=== PATIENT | male | born 1955 | race Caucasian/White ===

== ENCOUNTER 2019-07-17 19:20 | Emergency (ER) | payer BC ==
[2019-07-17 19:30] VITALS: BP 124/100; PULSE 81; TEMP 98; BMI 45.1
--- NOTE | 2019-07-17 20:26 | PDOC ---
History of Present Illness - General Chief Complaint: Pain, Acute Stated Complaint: FLANK PAIN Time Seen by Provider: 07/17/19 20:21 History Source: Patient - History of Present Illness Initial Comments: 07/17/19 64 year old male c/o Right flank pain for the last 3 to 4 days. Patient reports that he has been taking couple of dose of oxycodone and ibuprofen with no pain relief. Patient reports that one week ago patient had spinal nerve pain procedure done by pain management. Patient denies any fever/chills. Patient was seen at urgent care labs ultrasound and urine was negative. Patient was seen by PCP who sent patient in for evaluation for rule out acute abdomen. Patient denies any abdominal pain. Patient does have slight nausea right flank pain. Denies urinary symptoms. T-max of 99 at home yesterday 07/17/19 23:37 Past History - Past Medical History Allergies/Adverse Reactions: Allergies Allergy/AdvReac Type Severity Reaction Status Date / Time acetaminophen [From Vicodin] Allergy Mild "sick as a Verified 03/31/14 15:42 dog"..."like severely intoxicated" hydrocodone bitartrate Allergy Mild "sick as a Verified 03/31/14 15:42 [From Vicodin] dog"..."like severely intoxicated" Sulfa (Sulfonamide Allergy Vomiting Verified 03/31/14 15:42 Antibiotics) Home Medications: Ambulatory Orders Cyclobenzaprine HCl [Flexeril -] 10 mg PO TID #10 tablet 03/31/14 Liothyronine Sodium [Cytomel] 25 mcg PO DAILY 03/31/14 Nebivolol HCl [Bystolic] 5 mg PO DAILY 03/31/14 Lidocaine 5% Patch [Lidoderm -] 1 patch TP DAILY #7 patch 07/17/19 Naproxen 500 mg PO BID PRN #20 tablet 07/17/19 Cyclobenzaprine HCl [Flexeril 10 mg] 10 mg PO BID PRN #10 tablet 07/18/19 Cancer: Yes (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) COPD: No HTN: Yes - Surgical History Abdominal Surgery: Yes Cholecystectomy: Yes - Psycho Social/Smoking Cessation Hx Smoking Status: Yes Smoking History: Never smoked Have you smoked in the past 12 months: No Number of Cigarettes Smoked Daily: 0 Information on smoking cessation initiated: No Hx Alcohol Use: No Drug/Substance Use Hx: No Substance Use Type: None Review of Systems - Review of Systems Able to Perform ROS?: Yes Is the patient limited Syriac proficient: No Constitutional: No: Symptoms Reported, See HPI, Chills, Diaphoresis, Fever, Loss of Appetite, Malaise, Night Sweats, Weakness, Weight Stable, Unintentional Wgt. Loss, Unexplained wgt Loss, Other ABD/GI: Yes: Nausea. No: Symptoms Reported, See HPI, Abdominal Distended, Abd. Pain w/ defecation, Blood Streaked Bowels, Constipated, Diarrhea, Difficulty Swallowing, Poor Appetite, Poor Fluid Intake, Rectal Bleeding, Vomiting, Indigestion, Abdominal cramping, Tarry Stools, Other : Yes: Flank Pain. No: Symptoms Reported, See HPI, Burning, Dysuria, Discharge, Frequency, Hematuria, Incontinence, Pain, Urgency, Testicular Mass, Testicular Swelling, Lesions, Testicular Pain, Other *Physical Exam - Vital Signs Last Vital Signs Temp Pulse Resp BP Pulse Ox 98.0 F 81 19 124/100 97 07/17/19 19:26 07/17/19 19:26 07/17/19 19:26 07/17/19 19:26 07/17/19 19:26 - Physical Exam General Appearance: Yes: Mild Distress Respiratory/Chest: positive: Lungs Clear, Normal Breath Sounds Gastrointestinal/Abdominal: positive: Normal Bowel Sounds, Soft, Other (No right lower quadrant tenderness.). negative: Tender Extremity: positive: Normal Capillary Refill, Normal Inspection, Normal Range of Motion Integumentary: positive: Normal Color, Dry, Warm Neurologic: positive: Fully Oriented, Alert, Normal Mood/Affect ED Treatment Course - LABORATORY CBC & Chemistry Diagram: 07/17/19 20:44 07/17/19 20:44 ED Progress Note - Progress Note Progress Note: 07/17/19 23:42 A: right flank pain P: cbc cmp UA CTAP pain control Medical Decision Making - Medical Decision Making 07/17/19 23:41 CTAP: No evidence of urolithiasis or hydronephrosis. Increased size of very large umbilical hernia. Diffuse hepatic steatosis. Multilevel thoracolumbar degenerative disc and facet joint changes. Appendix appears unremarkable. Sigmoid diverticulosis. 07/18/19 06:36 Patient is pain free after toradol IM. 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 Discharge - Discharge Information Problems reviewed: Yes Clinical Impression/Diagnosis: Flank pain, acute Condition: Stable Disposition: HOME - Additional Discharge Information Prescriptions: Cyclobenzaprine HCl [Flexeril 10 mg] 10 mg PO BID PRN #10 tablet PRN Reason: Muscle Spasms Lidocaine 5% Patch [Lidoderm -] 1 patch TP DAILY #7 patch Naproxen 500 mg PO BID PRN #20 tablet PRN Reason: Back Pain - Follow up/Referral Referrals: Wendi Stephenson MD [Primary Care Provider] - Call tomorrow - Patient Discharge Instructions Patient Printed Discharge Instructions: DI for Flank Pain Additional Instructions: 1. Please return to the emergency department with any numbness, tingling, weakness, numbness or tingling to groin or legs, or loss of bowel or bladder function. 2. Use pain medication as ordered. 3. Please is to followup orthopedic for evaluation within a week if no improvement. 4. Ice or heat 5. Refrain from lifting anything above 10 pounds, until pain resolved. Take Naprosyn twice a day as prescribed. Use lidocaine patch as prescribed. - Post Discharge Activity
[2019-07-17] MEDS ORDERED: ONDANSETRON 4 MG/2 ML VIAL IVPB ONE (20:28)
[2019-07-17] MEDS ORDERED: SODIUM CHLORIDE 1,000 ML IV STA (20:28)
[2019-07-17] MEDS ORDERED: morphine CARPU-JECT 4 MG/1 ML DISP.SYRIN IVPUSH ONE ×2 (20:29→22:06)
[2019-07-17] MEDS ORDERED: ONDANSETRON 4 MG/2 ML VIAL ONE (20:50)
[2019-07-17] MEDS ORDERED: morphine SULFATE 4 MG/ML VIAL ONE ×2 (20:50→22:41)
[2019-07-17 20:53] LABS: BASO % 0.8 % (0-2.0); EOS % 2.1 % (0-4.5); HEMATOCRIT 43.6 % (35.4-49); HEMOGLOBIN 14.5 GM/dL (11.7-16.9); LYMPH % 19.5 % (8-40); MCHC 33.2 g/dl (32.0-35.9); MEAN CELL VOLUME 90.4 fl (80-96); MONO % 8.2 % (3.8-10.2); NEUT % 69.4 % (42.8-82.8); PLATELET COUNT 225 K/MM3 (134-434); RBC 4.83 M/mm3 (4.00-5.60); RDW 13.3 % (11.9-15.9); WHITE BLOOD COUNT 11.5 K/mm3 (4.0-10.0)
[2019-07-17] MEDS ORDERED: morphine CARPU-JECT 2 MG/1 ML DISP.SYRIN IVPUSH ONE (21:04)
[2019-07-17 21:19] LABS: ALBUMIN 3.6 g/dl (3.4-5.0); BILIRUBIN,TOTAL 0.3 mg/dL (0.2-1); BLOOD UREA NITROGEN 18.4 mg/dL (7-18); CALCIUM 9.1 mg/dL (8.5-10.1); CREATININE 0.9 mg/dL (0.55-1.3); POTASSIUM 4.2 mmol/L (3.5-5.1); TOT PROT 7.1 g/dl (6.4-8.2)
[2019-07-17] MEDS ORDERED: LIDOCAINE PATCH REMOVAL MC SCH (22:00)
[2019-07-17 22:24] LABS: PH,URINE 6.5 (5.0-8.0); URINE APPEARANCE CLEAR; URINE BILIRUBIN NEGATIVE (NEGATIVE); URINE COLOR YELLOW; URINE GLUCOSE (UA) NEGATIVE (NEGATIVE); URINE KETONE NEGATIVE (NEGATIVE); URINE LEUK ESTERASE NEGATIVE (NEGATIVE); URINE NITRITE NEGATIVE (NEGATIVE); URINE PROTEIN NEGATIVE (NEGATIVE); URINE UROBILINOGEN 0.2 mg/dL (0.2-1.0)
[2019-07-17] MEDS ORDERED: KETOROLAC TROMETHAMINE 30 MG/1 ML VIAL IVPUSH ONE (23:10)
[2019-07-17] MEDS ORDERED: LIDOCAINE 5% TOPICAL PATCH TP ONE (23:10)
[2019-07-17] MEDS ORDERED: KETOROLAC TROMETHAMINE 30 MG/1 ML VIAL ONE (23:15)
[2019-07-17] MEDS ORDERED: LIDOCAINE 5% TOPICAL PATCH ONE (23:15)
== END 2019-07-18 00:26 | disposition home or self-care (01) ==
LOC: JER 19:20
PROC: 3E0337Z Introduction of Electrolytic and Water Balance Substance into Peripheral Vein, Percutaneous Approach (ICD-10-PCS; principal; 2019-07-17)
PROC: 3E033NZ Introduction of Analgesics, Hypnotics, Sedatives into Peripheral Vein, Percutaneous Approach (ICD-10-PCS; 2019-07-17)
PROC: 3E033GC Introduction of Other Therapeutic Substance into Peripheral Vein, Percutaneous Approach (ICD-10-PCS; 2019-07-17)
PROC: 3E0333Z Introduction of Anti-inflammatory into Peripheral Vein, Percutaneous Approach (ICD-10-PCS; 2019-07-17)
PROC: 3E033NZ Introduction of Analgesics, Hypnotics, Sedatives into Peripheral Vein, Percutaneous Approach (ICD-10-PCS; 2019-07-17)
DX: R10.9 Unspecified abdominal pain (principal); I10 Essential (primary) hypertension; Z85.828 Personal history of other malignant neoplasm of skin; Z90.49 Acquired absence of other specified parts of digestive tract; Z88.2 Allergy status to sulfonamides; Z88.6 Allergy status to analgesic agent; Z88.5 Allergy status to narcotic agent
CPT/HCPCS: 36415; 74176-TC; 80053; 81003; 83690; 85025; 99283-25; J7030

== ENCOUNTER 2022-08-12 11:38 | Inpatient (IN) | payer OTHER, BC ==
[2022-08-12] MEDS ORDERED: FAMOTIDINE 20 MG/50 ML IVPB 20 MG/50 ML MG IVPB ONE ×2 (12:33→12:40)
[2022-08-12] MEDS ORDERED: morphine CARPU-JECT 4 MG/1 ML DISP.SYRIN IVPUSH ONE (12:34)
[2022-08-12] MEDS ORDERED: ACETAMINOPHEN 1000 MG/100 ML BAG IVPB ONE (12:35)
[2022-08-12] MEDS ORDERED: morphine SULFATE 4 MG/ML VIAL IVPUSH ONE (12:35)
[2022-08-12] MEDS ORDERED: morphine SULFATE 4 MG/ML VIAL ONE ×2 (12:39→12:42)
[2022-08-12] MEDS ORDERED: ACETAMINOPHEN INJECTION 100 ML IVPB ONE ×2 (12:40→20:05)
[2022-08-12] MEDS ORDERED: ONDANSETRON 4 MG/2 ML VIAL ONE ×2 (12:42→15:38)
[2022-08-12] MEDS ORDERED: ONDANSETRON 4 MG/2 ML VIAL IVPUSH ONE (12:42)
[2022-08-12] MEDS ORDERED: LACTATED RINGERS SOLUTION 1,000 ML/1,000 ML INFUS.BAG IV STA (12:42)
[2022-08-12] MEDS ORDERED: HYDROmorphone HCL CARPU-JECT 2 MG/1 ML DISP.SYRIN IVPUSH ONE ×2 (12:56→14:48)
[2022-08-12] MEDS ORDERED: HYDROmorphone HCl 2 MG/ML VIAL ONE ×3 (12:57→17:12)
[2022-08-12 13:04] LABS: BASO % 0.6 % (0-2.0); EOS % 0.6 % (0-4.5); HEMATOCRIT 46.6 % (35.4-49); LYMPH % 11.7 % (8-40); MCHC 34.4 g/dl (32.0-35.9); MEAN CELL VOLUME 87.4 fl (80-96); MEAN PLT VOLUME 8.3 fl (7.5-11.1); MONO % 5.3 % (3.8-10.2); NEUT % 81.8 % (42.8-82.8); PLATELET COUNT 266 10^3/uL (134-434); RBC 5.34 M/mm3 (4.00-5.60); RDW 13.3 % (11.9-15.9); WHITE BLOOD COUNT 9.4 K/mm3 (4.0-10.0)
[2022-08-12 13:11] LABS: INR 1.07 (0.83-1.09); PROTHROMBIN TIME (PATIENT) 12.3 SEC (9.7-13.0)
[2022-08-12 13:40] LABS: ALBUMIN 3.9 g/dl (3.4-5.0)
[2022-08-12 13:42] LABS: CREATININE 1.1 mg/dL (0.55-1.3)
[2022-08-12 13:44] LABS: BILIRUBIN,TOTAL 0.6 mg/dL (0.2-1); TOT PROT 7.7 g/dl (6.4-8.2)
[2022-08-12 14:18] LABS: LACTIC ACID 3.7 mmol/L (0.4-2.0)
[2022-08-12] MEDS ORDERED: BUPIVACAINE HCL/PF 0.5% (5MG/ML) 10 ML VIAL ONE (15:11)
[2022-08-12] MEDS ORDERED: DEXAMETHASONE SOD PHOSPHATE 4 MG/1 ML VIAL ONE ×2 (15:38→17:12)
[2022-08-12] MEDS ORDERED: LIDOCAINE HCL/PF 2% SDV 5ML VIAL ONE (15:38)
[2022-08-12] MEDS ORDERED: ROCURONIUM BROMIDE 50 MG/5 ML SYRINGE ONE ×2 (15:39→17:15)
[2022-08-12] MEDS ORDERED: PROPOFOL 20 ML ONE ×2 (15:39→15:44)
[2022-08-12] MEDS ORDERED: MIDAZOLAM HCL 2 MG/2 ML SINGLE DOSE VIAL ONE (15:39)
[2022-08-12] MEDS ORDERED: SCOPOLAMINE HYDROBROMIDE 1 PATCH PATCH.TD72 ONE (15:39)
[2022-08-12] MEDS ORDERED: LACTATED RINGERS SOLUTION 1,000 ML/1,000 ML INFUS.BAG IV SCH (15:45)
[2022-08-12] MEDS ORDERED: PANTOPRAZOLE SODIUM 40 MG VIAL IVPUSH SCH (16:00)
[2022-08-12] MEDS ORDERED: ceFAZolin SODIUM 1 GM VIAL IVPB ONE (16:10)
[2022-08-12] MEDS ORDERED: ceFAZolin SODIUM 1 GM VIAL ONE (16:11)
[2022-08-12] MEDS ORDERED: CEFAZOLIN SODIUM 2 GM in DEXTROSE 5%-WATER 100 ML IVPB ONE (16:45)
[2022-08-12] MEDS ORDERED: ceFAZolin 2 GRAM PREMIX BAG IVPB ONE (16:45)
[2022-08-12] MEDS ORDERED: CEFAZOLIN 1 GM PUSH 1 GM/10 ML SYRINGE IVPUSH SCH ×2 (16:55→18:00)
[2022-08-12] MEDS ORDERED: METOPROLOL TARTRATE 5 MG/5 ML VIAL IVPUSH PRN ×2 (16:59→20:00)
[2022-08-12] MEDS ORDERED: PIPERACILLIN/TAZOBACTAM 3.375 GM VIAL IVPB ONE ×2 (17:05→17:10)
[2022-08-12] MEDS ORDERED: CEFAZOLIN 1 GM in DEXTROSE 5%-WATER - 50 ML IVPB SCH (18:00)
[2022-08-12] MEDS ORDERED: GLYCOPYRROLATE 0.2 MG/1 ML VIAL ONE (18:27)
[2022-08-12] MEDS ORDERED: NEOSTIGMINE METHYLSULFATE 0.5 MG/ML - 10 ML MDV ONE (18:28)
[2022-08-12] MEDS ORDERED: ONDANSETRON 4 MG/2 ML VIAL IVPUSH PRN ×2 (19:31→20:00)
[2022-08-12] MEDS ORDERED: HYDROmorphone *PCA* 10MG/50ML DISP.SYRIN ONE (19:55)
[2022-08-12] MEDS: ACETAMINOPHEN 1000 MG/100 ML BAG IVPB SCH (20:00)
[2022-08-12] MEDS: HYDROmorphone *PCA* 10MG/50ML DISP.SYRIN PCA SCH (21:00)
[2022-08-12] MEDS: LACTATED RINGERS SOLUTION 1,000 ML/1,000 ML INFUS.BAG IV SCH (22:45)
[2022-08-13 00:18] VITALS: BMI 36.9
[2022-08-13] MEDS ORDERED: PIPERACILLIN/TAZOB 3.375 GM 3.375 GM in DEXTROSE 5%-WATER - 50 ML IVPB SCH (02:00)
[2022-08-13] MEDS: PIPERACILLIN/TAZOB 3.375 GM 3.375 GM in DEXTROSE 5%-WATER - 50 ML IVPB SCH ×3 (02:15→19:30)
[2022-08-13] MEDS: ACETAMINOPHEN 1000 MG/100 ML BAG IVPB SCH ×4 (03:22→21:12)
[2022-08-13] MEDS ORDERED: ACETAMINOPHEN 1000 MG/100 ML BAG IVPB SCH (04:00)
[2022-08-13] MEDS ORDERED: LIOTHYRONINE SODIUM 25 MCG TABLET PO SCH (07:00)
[2022-08-13] MEDS: LIOTHYRONINE SODIUM 25 MCG TABLET PO SCH (07:05)
[2022-08-13 08:26] LABS: BASO % 0.1 % (0-2.0); HEMATOCRIT 43.2 % (35.4-49); HEMOGLOBIN 14.4 GM/dL (11.7-16.9); LYMPH % 4.2 % (8-40); MCH 29.6 pg (25.7-33.7); MCHC 33.4 g/dl (32.0-35.9); MEAN CELL VOLUME 88.7 fl (80-96); MEAN PLT VOLUME 8.4 fl (7.5-11.1); MONO % 5.1 % (3.8-10.2); NEUT % 90.6 % (42.8-82.8); PLATELET COUNT 254 10^3/uL (134-434); RBC 4.87 M/mm3 (4.00-5.60); RDW 13.2 % (11.9-15.9); WHITE BLOOD COUNT 19.8 K/mm3 (4.0-10.0)
[2022-08-13 08:50] LABS: BLOOD UREA NITROGEN 11.5 mg/dL (7-18); CALCIUM 8.9 mg/dL (8.5-10.1)
[2022-08-13 08:54] LABS: CREATININE 0.8 mg/dL (0.55-1.3)
[2022-08-13 08:55] LABS: TOT PROT 6.2 g/dl (6.4-8.2)
[2022-08-13 08:56] LABS: BILIRUBIN,TOTAL 0.4 mg/dL (0.2-1)
[2022-08-13] MEDS: NEBIVOLOL 5 MG TABLET (FP) PO SCH (09:22)
[2022-08-13] MEDS: PANTOPRAZOLE SODIUM 40 MG VIAL IVPUSH SCH (09:44)
[2022-08-13] MEDS ORDERED: NEBIVOLOL 5 MG TABLET (FP) PO SCH (10:00)
[2022-08-13] MEDS ORDERED: PHENOL 177 ML SPRAY BOTTLE MM PRN (11:00)
[2022-08-13] MEDS: HEPARIN NA (PORCINE) 5,000 UNITS/ML 1ML VIAL SQ SCH ×2 (14:12→18:42)
[2022-08-13 16:35] LABS: BASO % 0.2 % (0-2.0); HEMATOCRIT 41.2 % (35.4-49); HEMOGLOBIN 13.8 GM/dL (11.7-16.9); LYMPH % 8.5 % (8-40); MCHC 33.5 g/dl (32.0-35.9); MEAN CELL VOLUME 89.7 fl (80-96); MEAN PLT VOLUME 8.3 fl (7.5-11.1); MONO % 8.1 % (3.8-10.2); NEUT % 83.2 % (42.8-82.8); PLATELET COUNT 247 10^3/uL (134-434); RBC 4.59 M/mm3 (4.00-5.60); RDW 13.4 % (11.9-15.9); WHITE BLOOD COUNT 16.8 K/mm3 (4.0-10.0)
[2022-08-13] MEDS: LACTATED RINGERS SOLUTION 1,000 ML/1,000 ML INFUS.BAG IV SCH (19:39)
[2022-08-14] MEDS: PIPERACILLIN/TAZOB 3.375 GM 3.375 GM in DEXTROSE 5%-WATER - 50 ML IVPB SCH ×3 (01:14→17:58)
[2022-08-14] MEDS: LACTATED RINGERS SOLUTION 1,000 ML/1,000 ML INFUS.BAG IV SCH ×2 (01:15→21:00)
[2022-08-14] MEDS: HEPARIN NA (PORCINE) 5,000 UNITS/ML 1ML VIAL SQ SCH ×3 (01:34→17:58)
[2022-08-14] MEDS: ACETAMINOPHEN 1000 MG/100 ML BAG IVPB SCH ×4 (02:20→20:52)
[2022-08-14] MEDS: LIOTHYRONINE SODIUM 25 MCG TABLET PO SCH (06:15)
[2022-08-14 09:19] LABS: BASO % 0.3 % (0-2.0); EOS % 1.7 % (0-4.5); HEMATOCRIT 39.7 % (35.4-49); HEMOGLOBIN 13.2 GM/dL (11.7-16.9); LYMPH % 11.5 % (8-40); MCH 29.6 pg (25.7-33.7); MCHC 33.1 g/dl (32.0-35.9); MEAN CELL VOLUME 89.3 fl (80-96); MEAN PLT VOLUME 8.3 fl (7.5-11.1); MONO % 8.3 % (3.8-10.2); NEUT % 78.2 % (42.8-82.8); PLATELET COUNT 209 10^3/uL (134-434); RBC 4.45 M/mm3 (4.00-5.60); RDW 13.5 % (11.9-15.9); WHITE BLOOD COUNT 11.9 K/mm3 (4.0-10.0)
[2022-08-14 09:53] LABS: CALCIUM 8.4 mg/dL (8.5-10.1)
[2022-08-14 09:54] LABS: ALBUMIN 2.8 g/dl (3.4-5.0); BLOOD UREA NITROGEN 11.1 mg/dL (7-18)
[2022-08-14 09:57] LABS: CREATININE 0.7 mg/dL (0.55-1.3)
[2022-08-14 09:58] LABS: TOT PROT 5.9 g/dl (6.4-8.2)
[2022-08-14 09:59] LABS: BILIRUBIN,TOTAL 0.4 mg/dL (0.2-1)
[2022-08-14] MEDS: NEBIVOLOL 5 MG TABLET (FP) PO SCH (10:01)
[2022-08-14] MEDS: PANTOPRAZOLE SODIUM 40 MG VIAL IVPUSH SCH (10:17)
[2022-08-14] MEDS ORDERED: METOPROLOL TARTRATE 5 MG/5 ML VIAL IVPUSH PRN (14:09)
[2022-08-15] MEDS: HEPARIN NA (PORCINE) 5,000 UNITS/ML 1ML VIAL SQ SCH ×3 (01:48→17:36)
[2022-08-15] MEDS: PIPERACILLIN/TAZOB 3.375 GM 3.375 GM in DEXTROSE 5%-WATER - 50 ML IVPB SCH ×3 (01:48→17:36)
[2022-08-15] MEDS: ACETAMINOPHEN 1000 MG/100 ML BAG IVPB SCH ×4 (03:30→20:59)
[2022-08-15] MEDS: LIOTHYRONINE SODIUM 25 MCG TABLET PO SCH ×2 (06:24→06:37)
[2022-08-15] MEDS ORDERED: LACTATED RINGERS SOLUTION 1,000 ML/1,000 ML INFUS.BAG IV SCH ×2 (06:42→14:48)
[2022-08-15 08:15] LABS: BASO % 0.3 % (0-2.0); EOS % 3.8 % (0-4.5); HEMATOCRIT 38.4 % (35.4-49); HEMOGLOBIN 12.9 GM/dL (11.7-16.9); LYMPH % 11.4 % (8-40); MCH 29.9 pg (25.7-33.7); MCHC 33.7 g/dl (32.0-35.9); MEAN CELL VOLUME 88.8 fl (80-96); MEAN PLT VOLUME 8.3 fl (7.5-11.1); MONO % 8.5 % (3.8-10.2); PLATELET COUNT 206 10^3/uL (134-434); RBC 4.33 M/mm3 (4.00-5.60); RDW 13.3 % (11.9-15.9); WHITE BLOOD COUNT 11.3 K/mm3 (4.0-10.0)
[2022-08-15 08:25] LABS: CALCIUM 8.8 mg/dL (8.5-10.1)
[2022-08-15 08:26] LABS: BLOOD UREA NITROGEN 11.8 mg/dL (7-18)
[2022-08-15 08:29] LABS: CREATININE 0.7 mg/dL (0.55-1.3)
[2022-08-15] MEDS: PANTOPRAZOLE SODIUM 40 MG VIAL IVPUSH SCH (11:14)
[2022-08-15] MEDS: NEBIVOLOL 5 MG TABLET (FP) PO SCH ×2 (11:14→11:16)
[2022-08-15] MEDS: HYDROmorphone *PCA* 10MG/50ML DISP.SYRIN PCA SCH ×2 (12:04→20:59)
[2022-08-16] MEDS: PIPERACILLIN/TAZOB 3.375 GM 3.375 GM in DEXTROSE 5%-WATER - 50 ML IVPB SCH ×3 (01:49→17:37)
[2022-08-16] MEDS: HEPARIN NA (PORCINE) 5,000 UNITS/ML 1ML VIAL SQ SCH ×3 (02:00→17:38)
[2022-08-16] MEDS: ACETAMINOPHEN 1000 MG/100 ML BAG IVPB SCH (03:38)
[2022-08-16] MEDS: LIOTHYRONINE SODIUM 25 MCG TABLET PO SCH (06:10)
[2022-08-16 08:57] LABS: BASO % 0.4 % (0-2.0); HEMATOCRIT 37.4 % (35.4-49); HEMOGLOBIN 12.5 GM/dL (11.7-16.9); LYMPH % 14.9 % (8-40); MCH 29.7 pg (25.7-33.7); MCHC 33.5 g/dl (32.0-35.9); MEAN CELL VOLUME 88.8 fl (80-96); MEAN PLT VOLUME 8.6 fl (7.5-11.1); MONO % 7.2 % (3.8-10.2); NEUT % 72.5 % (42.8-82.8); PLATELET COUNT 207 10^3/uL (134-434); RBC 4.21 M/mm3 (4.00-5.60); RDW 13.2 % (11.9-15.9); WHITE BLOOD COUNT 9.5 K/mm3 (4.0-10.0)
[2022-08-16 09:25] LABS: CALCIUM 8.4 mg/dL (8.5-10.1)
[2022-08-16 09:26] LABS: BLOOD UREA NITROGEN 11.6 mg/dL (7-18)
[2022-08-16 09:29] LABS: CREATININE 0.7 mg/dL (0.55-1.3)
[2022-08-16] MEDS: PANTOPRAZOLE 40 MG TABLET PO SCH (10:51)
[2022-08-16] MEDS: LACTATED RINGERS SOLUTION 1,000 ML/1,000 ML INFUS.BAG IV SCH (11:09)
[2022-08-17] MEDS: HEPARIN NA (PORCINE) 5,000 UNITS/ML 1ML VIAL SQ SCH ×3 (02:00→17:24)
[2022-08-17] MEDS: PIPERACILLIN/TAZOB 3.375 GM 3.375 GM in DEXTROSE 5%-WATER - 50 ML IVPB SCH ×3 (02:00→17:23)
[2022-08-17 08:10] LABS: BASO % 0.7 % (0-2.0); EOS % 5.6 % (0-4.5); HEMATOCRIT 35.8 % (35.4-49); HEMOGLOBIN 12.2 GM/dL (11.7-16.9); LYMPH % 13.4 % (8-40); MCH 30.1 pg (25.7-33.7); MCHC 33.9 g/dl (32.0-35.9); MEAN CELL VOLUME 88.8 fl (80-96); MEAN PLT VOLUME 8.3 fl (7.5-11.1); MONO % 8.4 % (3.8-10.2); NEUT % 71.9 % (42.8-82.8); PLATELET COUNT 225 10^3/uL (134-434); RBC 4.03 M/mm3 (4.00-5.60); RDW 13.2 % (11.9-15.9); WHITE BLOOD COUNT 9.7 K/mm3 (4.0-10.0)
[2022-08-17 08:43] LABS: CALCIUM 8.5 mg/dL (8.5-10.1)
[2022-08-17 08:44] LABS: BLOOD UREA NITROGEN 10.9 mg/dL (7-18)
[2022-08-17 08:47] LABS: CREATININE 0.8 mg/dL (0.55-1.3)
[2022-08-17] MEDS: PANTOPRAZOLE 40 MG TABLET PO SCH (09:49)
[2022-08-17] MEDS: LACTATED RINGERS SOLUTION 1,000 ML/1,000 ML INFUS.BAG IV SCH (09:49)
[2022-08-17 15:11] VITALS: RESP 18
[2022-08-18] MEDS: PIPERACILLIN/TAZOB 3.375 GM 3.375 GM in DEXTROSE 5%-WATER - 50 ML IVPB SCH ×2 (01:35→10:05)
[2022-08-18] MEDS: HEPARIN NA (PORCINE) 5,000 UNITS/ML 1ML VIAL SQ SCH ×2 (01:35→10:05)
[2022-08-18] MEDS: LACTATED RINGERS SOLUTION 1,000 ML/1,000 ML INFUS.BAG IV SCH ×2 (01:35→10:04)
[2022-08-18] MEDS ORDERED: MULTIVIT-MINERALS ORAL LIQUID PO SCH (10:00)
[2022-08-18] MEDS: PANTOPRAZOLE 40 MG TABLET PO SCH ×2 (10:06→10:09)
[2022-08-18 10:14] VITALS: PULSE 64
[2022-08-18 15:04] VITALS: BP 106/68; TEMP 98.3
== END 2022-08-18 15:26 | disposition home or self-care (01) | DRG 329 ==
LOC: JER 11:38 → JERBED 13:02 → J4S 22:11 → J4W 08-13 10:31 → J4S 08-14 02:12
PROVIDERS: ADMIT Internal Medicine; ATTEND Internal Medicine
PROC: 0DB80ZZ Excision of Small Intestine, Open Approach (ICD-10-PCS; 2022-08-12)
PROC: 0WQF0ZZ Repair Abdominal Wall, Open Approach (ICD-10-PCS; 2022-08-12)
PROC: 0D9670Z Drainage of Stomach with Drainage Device, Via Natural or Artificial Opening (ICD-10-PCS; 2022-08-12)
PROC: 0DTU0ZZ Resection of Omentum, Open Approach (ICD-10-PCS; principal; 2022-08-12 15:30)
DX: K42.0 Umbilical hernia with obstruction, without gangrene (principal); K55.029 Acute infarction of small intestine, extent unspecified; E87.20 Acidosis, unspecified; R10.13 Epigastric pain; R11.2 Nausea with vomiting, unspecified; R19.7 Diarrhea, unspecified; K43.9 Ventral hernia without obstruction or gangrene; K57.90 Diverticulosis of intestine, part unspecified, without perforation or abscess without bleeding; M62.81 Muscle weakness (generalized); E66.9 Obesity, unspecified; Z68.36 Body mass index [BMI] 36.0-36.9, adult; Z98.84 Bariatric surgery status; R26.81 Unsteadiness on feet
CPT/HCPCS: 36415; 71045-TC-FY; 74177-TC; 80048; 80053; 83605; 83690; 84439; 84443; 84481; 85025; 85610; 86850; 86900; 86901; 88305-TC; 88307-TC; 93005; 93010; 94760; 97116-GP; 97162-GP; 99291; C9803-CS; J1644; U0003; U0005

== ENCOUNTER 2023-07-26 09:42 | Observation (INO) | payer OTHER, BC ==
[2023-07-26 09:55] VITALS: BMI 34.7
[2023-07-26] MEDS ORDERED: ACETAMINOPHEN 1000 MG/100 ML BAG IVPB ONE (10:32)
[2023-07-26] MEDS ORDERED: ACETAMINOPHEN INJECTION 100 ML IVPB ONE (11:21)
[2023-07-26 12:01] LABS: BASO % 0.5 % (0-2.0); EOS % 2.9 % (0-4.5); HEMATOCRIT 45.8 % (35.4-49); HEMOGLOBIN 15.6 GM/dL (11.7-16.9); LYMPH % 22.1 % (8-40); MCHC 34.1 g/dl (32.0-35.9); MEAN PLT VOLUME 8.4 fl (7.5-11.1); MONO % 9.1 % (3.8-10.2); NEUT % 65.4 % (42.8-82.8); PLATELET COUNT 201 10^3/uL (134-434); RBC 5.21 M/mm3 (4.00-5.60); RDW 13.2 % (11.9-15.9); WHITE BLOOD COUNT 6.8 K/mm3 (4.0-10.0)
[2023-07-26 12:14] LABS: CHLORIDE 104 mmol/L (98-107); POTASSIUM 4.2 mmol/L (3.5-5.1); SODIUM 139 mmol/L (136-145)
[2023-07-26 12:17] LABS: CALCIUM 9.1 mg/dL (8.5-10.1)
[2023-07-26 12:20] LABS: ALBUMIN 3.6 g/dl (3.4-5.0); ANION GAP 9 mmol/L (4-13); BLOOD UREA NITROGEN 10.6 mg/dL (7-18); CO2 26 mmol/L (21-32); GLUCOSE,RANDOM 111 mg/dL (74-106)
[2023-07-26 12:23] LABS: CREATININE 0.8 mg/dL (0.55-1.3); SGPT/ALT 29 U/L (13-61)
[2023-07-26 12:24] LABS: ALK PHOS 69 U/L (45-117); TOT PROT 7.1 g/dl (6.4-8.2)
[2023-07-26 12:31] LABS: BILIRUBIN,TOTAL 0.4 mg/dL (0.2-1)
[2023-07-26 12:37] LABS: SGOT/AST 27 U/L (15-37)
[2023-07-27 09:05] LABS: CHOLESTEROL 181 mg/dL (50-200)
[2023-07-27 09:07] LABS: LDL CHOLESTEROL (ONLY SJRH) 108 mg/dL (5-100)
[2023-07-27 09:08] LABS: HDL CHOLESTEROL 45 mg/dL (40-60)
[2023-07-27] MEDS ORDERED: ASPIRIN COATED 81 MG TABLET.EC PO SCH (10:30)
[2023-07-27] MEDS ORDERED: ACETAMINOPHEN/CAFFEINE/BUTALBITAL 1 TAB PO PRN (13:34)
[2023-07-27 18:08] VITALS: BP 111/88; PULSE 75; RESP 18; TEMP 98.9
[2023-07-27] MEDS ORDERED: ATORVASTATIN CA 40 MG TABLET (FP) PO SCH (22:00)
== END 2023-07-27 18:29 | disposition home or self-care (01) ==
LOC: JER 09:42 → JERBED 14:08 → J4W 23:05
PROVIDERS: ADMIT Internal Medicine; ATTEND Internal Medicine
PROC: 3E033NZ Introduction of Analgesics, Hypnotics, Sedatives into Peripheral Vein, Percutaneous Approach (ICD-10-PCS; principal; 2023-07-26)
DX: R20.0 Anesthesia of skin (principal); I10 Essential (primary) hypertension; Z90.49 Acquired absence of other specified parts of digestive tract; K21.9 Gastro-esophageal reflux disease without esophagitis; Z98.84 Bariatric surgery status; E66.9 Obesity, unspecified; C44.310 Basal cell carcinoma of skin of unspecified parts of face; K80.20 Calculus of gallbladder without cholecystitis without obstruction; K92.9 Disease of digestive system, unspecified; Z96.652 Presence of left artificial knee joint; K42.9 Umbilical hernia without obstruction or gangrene
CPT/HCPCS: 36415; 70450-TC; 70551-TC; 80053; 80061; 82607; 82746; 83036; 84443; 85025; 85651; 86140; 93005; 93010; 93880-TC; 96374; 99285-25; G0378

== ENCOUNTER 2023-08-15 15:11 | Emergency (ER) | payer OTHER, BC ==
[2023-08-15 16:21] VITALS: BP 161/93; PULSE 72; RESP 19; TEMP 98.3; BMI 35.4
== END 2023-08-15 21:08 | disposition left against medical advice (07) ==
LOC: JER 15:11
DX: H57.9 Unspecified disorder of eye and adnexa (principal)
CPT/HCPCS: 99281-25

== ENCOUNTER 2023-08-16 08:10 | Observation (INO) | payer OTHER, BC ==
[2023-08-16 08:19] VITALS: BP 131/82; RESP 18
[2023-08-16] MEDS ORDERED: methylPREDNISolone NA SUCC 125 MG/2 ML VIAL IVPUSH ONE (08:56)
[2023-08-16] MEDS ORDERED: valACYclovir HCL 500 MG TABLET (FP) PO ONE (08:57)
[2023-08-16] MEDS ORDERED: valACYclovir HCL 500 MG TABLET (FP) ONE (09:44)
[2023-08-16] MEDS ORDERED: methylPREDNISolone NA SUCC 125 MG/2 ML VIAL ONE (09:45)
[2023-08-16 09:50] LABS: BASO % 0.6 % (0-2.0); EOS % 4.2 % (0-4.5); HEMOGLOBIN 15.2 GM/dL (11.7-16.9); LYMPH % 23.3 % (8-40); MCH 29.6 pg (25.7-33.7); MCHC 32.2 g/dl (32.0-35.9); MEAN CELL VOLUME 91.7 fl (80-96); MONO % 10.4 % (3.8-10.2); NEUT % 61.5 % (42.8-82.8); PLATELET COUNT 296 10^3/uL (134-434); RBC 5.12 M/mm3 (4.00-5.60); RDW 13.6 % (11.9-15.9)
[2023-08-16 10:13] LABS: POTASSIUM 4.5 mmol/L (3.5-5.1)
[2023-08-16 10:16] LABS: ALBUMIN 3.8 g/dl (3.4-5.0); BLOOD UREA NITROGEN 20.4 mg/dL (7-18); CALCIUM 9.1 mg/dL (8.5-10.1)
[2023-08-16 10:19] LABS: CREATININE 0.9 mg/dL (0.55-1.3)
[2023-08-16 10:20] LABS: BILIRUBIN,TOTAL 0.4 mg/dL (0.2-1); TOT PROT 7.3 g/dl (6.4-8.2)
[2023-08-16 13:51] VITALS: PULSE 88; TEMP 98.4; BMI 35.3
== END 2023-08-16 15:30 | disposition short-term general hospital (02) ==
LOC: JER 08:10 → JERBED 08:51 → J7W 10:39
PROVIDERS: ADMIT Internal Medicine; ATTEND Internal Medicine
PROC: 3E033GC Introduction of Other Therapeutic Substance into Peripheral Vein, Percutaneous Approach (ICD-10-PCS; principal; 2023-08-16)
DX: B02.30 Zoster ocular disease, unspecified (principal); B02.21 Postherpetic geniculate ganglionitis; Z98.84 Bariatric surgery status; I10 Essential (primary) hypertension; E78.5 Hyperlipidemia, unspecified; K92.9 Disease of digestive system, unspecified; Z96.652 Presence of left artificial knee joint; Z88.2 Allergy status to sulfonamides; Z88.8 Allergy status to other drugs, medicaments and biological substances
CPT/HCPCS: 0241U-QW; 36415; 70553-TC; 80053; 85025; 93005; 93010; 96374; 99285-25; G0378